=== PATIENT | male | born 1995 | race Caucasian/White ===

== ENCOUNTER 2018-04-05 04:00 | Emergency (ER) | payer MEDICAID, OTHER ==
[~2018-04-05] VITALS: Ht 188 cm; Wt 127.2 kg
[~2018-04-05 04:00] MED LIST: PRED10TA PO
[2018-04-05] MEDS ORDERED: famotidine 20mg tablet PO ONE (04:45)
[2018-04-05] MEDS ORDERED: predniSONE 20 mg tablet PO ONE (04:45)
[2018-04-05] MEDS ORDERED: FAMO-128 PO (04:46)
[2018-04-05] MEDS ORDERED: DIPH-423 PO (04:46)
[2018-04-05] MEDS ORDERED: METH4TAB81 PO (04:46)
[2018-04-05 05:02] VITALS: BP 139/79
== END 2018-04-05 05:05 | disposition home or self-care (01) ==
LOC: ER 04:01
DX: L25.5 Unspecified contact dermatitis due to plants, except food (principal); Z88.0 Allergy status to penicillin; Z79.899 Other long term (current) drug therapy
CPT/HCPCS: 99283; J7512

== ENCOUNTER 2018-04-07 16:57 | Emergency (ER) | payer MEDICAID, OTHER ==
[~2018-04-07] VITALS: Ht 188 cm; Wt 127.0 kg
[~2018-04-07 16:57] MED LIST changes: +DIPH-423 PO; +FAMO-128 PO; +METH4TAB81 PO
[2018-04-07 17:11] VITALS: BP 169/113
[2018-04-07] MEDS ORDERED: triamcinolone acetonide 40mg/ml inj IM ONE (17:25)
[2018-04-07] MEDS ORDERED: METH4TAB3 PO (17:27)
== END 2018-04-07 17:42 | disposition home or self-care (01) ==
LOC: ER 16:57
DX: L23.7 Allergic contact dermatitis due to plants, except food (principal); Z88.0 Allergy status to penicillin; Z79.899 Other long term (current) drug therapy
CPT/HCPCS: 96372; 99283; J3301

== ENCOUNTER 2022-10-18 19:33 | Emergency (ER) | payer MEDICAID, OTHER ==
[~2022-10-18] VITALS: Ht 190.5 cm; Wt 140.0 kg
[~2022-10-18 19:33] MED LIST changes: +METH4TAB3 PO
[2022-10-18 19:39] VITALS: BP 161/97
== END 2022-10-18 20:22 | disposition home or self-care (01) ==
LOC: ER 19:34
DX: N50.811 Right testicular pain (principal); N50.812 Left testicular pain; R10.9 Unspecified abdominal pain; Z88.0 Allergy status to penicillin; Z79.899 Other long term (current) drug therapy
CPT/HCPCS: 99281